=== PATIENT | female | born 1995 | race Two or more races ===

== ENCOUNTER 2018-09-17 18:39 | Emergency (ER) | payer SELFPAY ==
[~2018-09-17] VITALS: Ht 160 cm; Wt 69.9 kg
[2018-09-17] MEDS ORDERED: IOHEXOL 300 MG/ML 100ML BOTTLE IJ ONE (20:09)
[2018-09-17] MEDS ORDERED: KETOROLAC TROMETH 30 MG/ML 1ML VIAL IV ONE (20:15)
[2018-09-17 20:19] VITALS: BP 140/96
== END 2018-09-17 22:01 | disposition home or self-care (01) ==
LOC: ER 18:39
DX: R07.89 Other chest pain (principal); R10.30 Lower abdominal pain, unspecified; V43.62XA Car passenger injured in collision with other type car in traffic accident, initial encounter; Y93.89 Activity, other specified; Y99.8 Other external cause status; Y92.410 Unspecified street and highway as the place of occurrence of the external cause
CPT/HCPCS: 71260; 74177; 96374; 99284; J1885; Q9967